=== PATIENT | male | born 1995 | race Caucasian/White ===

== ENCOUNTER 2018-06-21 18:14 | Emergency (ER) | payer OTHER, BC ==
--- NOTE | 2018-06-21 18:41 | ER Document Report ---
ED Medical Screen (RME) - General Chief Complaint: Foot Pain Stated Complaint: FOOT INJURY Time Seen by Provider: 06/21/18 18:40 Mode of Arrival: Ambulatory Information source: Patient TRAVEL OUTSIDE OF THE [place] IN LAST 30 DAYS: No - HPI Patient complains to provider of: L foot pain Onset: Other - Pt with ulcers to L foot that haven't improved in the past few weeks. Now with surrounding erythema - Related Data Allergies/Adverse Reactions: No Known Allergies Allergy (Unverified 05/18/15 20:11) Past Medical History Past Surgical History: Reports: Hx Oral Surgery Physical Exam - Vital signs Vitals: Temp Pulse Resp BP Pulse Ox 98.6 F 59 L 20 144/75 H 99 06/21/18 18:26 06/21/18 18:26 06/21/18 18:26 06/21/18 18:26 06/21/18 18:26 Course - Vital Signs Vital signs: Temp Pulse Resp BP Pulse Ox 98.6 F 59 L 20 144/75 H 99 06/21/18 18:26 06/21/18 18:26 06/21/18 18:26 06/21/18 18:26 06/21/18 18:26 Doctor's Discharge - Discharge Referrals: RANJIT SHARMA PA-C [Primary Care Provider] - Follow up as needed
[2018-06-21 19:16] LABS: ABSOLUTE BASOPHILS # (AUTO) 0.1 10^3/uL (0.0-0.2); ABSOLUTE EOSINOPHILS # (AUTO) 0.2 10^3/uL (0.0-0.6); ABSOLUTE LYMPHOCYTES (AUTO) 3.5 10^3/uL (0.5-4.7); ABSOLUTE MONOCYTES (AUTO) 0.5 10^3/uL (0.1-1.4); BASOPHILS % (AUTO) 1.2 % (0-2); EOSINOPHILS % (AUTO) 2.7 % (0-6); HEMATOCRIT 42.4 % (37.9-51.0); HEMOGLOBIN 14.7 g/dL (13.5-17.0); LYMPHOCYTES % (AUTO) 37.5 % (13-45); MEAN CORPUSCULAR HEMOGLOBIN 29.2 pg (27.0-33.4); MEAN CORPUSCULAR HGB CONC 34.7 g/dL (32.0-36.0); MEAN CORPUSCULAR VOLUME 84 fl (80-97); RED BLOOD COUNT 5.05 10^6/uL (4.35-5.55); RED CELL DISTRIBUTION WIDTH 13.1 % (11.5-14.0); SEGMENTED NEUTROPHILS % (AUTO) 53.6 % (42-78); TOTAL CELLS COUNTED % (AUTO) 100 %; WHITE BLOOD COUNT 9.3 10^3/uL (4.0-10.5)
[2018-06-21 19:44] LABS: PLATELET COUNT 124 10^3/uL (150-450)
[2018-06-21 20:16] LABS: ALANINE AMINOTRANSFERASE 22 U/L (21-72); ALBUMIN 4.7 g/dL (3.5-5.0); ALKALINE PHOSPHATASE 80 U/L (38-126); ANION GAP 15 (5-19); ASPARTATE AMINO TRANSFERASE 20 U/L (17-59); BILIRUBIN,DIRECT 0.3 mg/dL (0.0-0.4); BILIRUBIN,TOTAL 0.5 mg/dL (0.2-1.3); BLOOD UREA NITROGEN 9 mg/dL (7-20); CALCIUM 9.8 mg/dL (8.4-10.2); CARBON DIOXIDE 27 mmol/L (22-30); CHLORIDE 102 mmol/L (98-107); GLUCOSE 84 mg/dL (75-110); POTASSIUM 3.8 mmol/L (3.6-5.0); SODIUM 143.7 mmol/L (137-145); TOTAL PROTEIN 7.3 g/dL (6.3-8.2)
--- NOTE | 2018-06-21 21:10 | RADIOLOGY REPORT (SQ) ---
EXAM DESCRIPTION: XR FOOT 1-2 VIEWS COMPLETED DATE/TME: 06/21/2018 18:40 CLINICAL HISTORY: 22 years, Male, ulcers -L foot Findings: Bony alignment is anatomic. No fracture or dislocation. Soft tissues are unremarkable. IMPRESSION: No fracture.
--- NOTE | 2018-06-21 21:11 | ER Document Report ---
ED Extremity Problem, Lower - General Chief Complaint: Foot Pain Stated Complaint: FOOT INJURY Time Seen by Provider: 06/21/18 18:40 Mode of Arrival: Ambulatory Information source: Patient Notes: Patient developed sores to the left foot after walking in the [place] in his work boots. He states that the boots have never dried since he walked in the [place]. He states he is worn his boots each day to work since then. He states the sores on his foot has slowly progressed over the last 3 weeks. He states he does not remember any injuries to the foot. There is no inflammation to the area. There is some purple skin around the ulcers. There is no warmth to the area there is no fevers or chills. Patient is alert and oriented respirations regular and unlabored speaking in full sentences walking with a even steady gait. TRAVEL OUTSIDE OF THE [place] IN LAST 30 DAYS: No - HPI Patient complains to provider of: Pain, Other - Ulcers to the top of the left foot slowly developed over the last month Location: Foot - Left foot Occurred: Other - Early over the last month Onset/Duration: Gradual Quality of pain: Achy, Pressure Severity: Moderate Pain Level: 2 Context: Other - Appears to be ulcers from wearing wet boots Recent injury: No Associated symptoms: Painful ambulation Exacerbated by: Movement, Walking Relieved by: Nothing - Related Data Allergies/Adverse Reactions: No Known Allergies Allergy (Unverified 05/18/15 20:11) Past Medical History - General Information source: Patient - Social History Smoking Status: Never Smoker Chew tobacco use (# tins/day): Yes - 4 cans a day Smoking Education Provided: Yes - 4 minutes Frequency of alcohol use: None Drug Abuse: None Lives with: Family Family History: Reviewed & Not Pertinent Patient has suicidal ideation: No Patient has homicidal ideation: No - Past Medical History Cardiac Medical History: Reports: None Pulmonary Medical History: Reports: None EENT Medical History: Reports: None Neurological Medical History: Reports: None Endocrine Medical History: Reports: None Renal/ Medical History: Reports: None Malignancy Medical History: Reports None GI Medical History: Reports: None Musculoskeletal Medical History: Reports None Skin Medical History: Reports None Psychiatric Medical History: Reports: None Traumatic Medical History: Reports: None Infectious Medical History: Reports: None Past Surgical History: Reports: Hx Oral Surgery Review of Systems - Review of Systems Notes: REVIEW OF SYSTEMS: CONSTITUTIONAL : Denies fever, chills, or sweats. Denies recent illness. EENT: Denies eye, ear, throat, or mouth pain or symptoms. Denies nasal or sinus congestion or discharge. Denies throat, tongue, or mouth swelling or difficulty swallowing. CARDIOVASCULAR: Denies chest pain. Denies palpitations or racing or irregular heart beat. Denies ankle edema. RESPIRATORY: Denies cough, cold, or chest congestion. Denies shortness of breath, difficulty breathing, or wheezing. GASTROINTESTINAL: Denies abdominal pain or distention. Denies nausea, vomiting , or diarrhea. Denies blood in vomitus, stools, or per rectum. Denies black, tarry stools. Denies constipation. GENITOURINARY: Denies difficulty urinating, painful urination, burning, frequency, blood in urine, or discharge. MUSCULOSKELETAL: Denies back or neck pain or stiffness. Denies joint pain or swelling. SKIN: Open sores to the top of the left foot x2 HEMATOLOGIC : Denies easy bruising or bleeding. LYMPHATIC: Denies swollen, enlarged glands. NEUROLOGICAL: Denies confusion or altered mental status. Denies passing out or loss of consciousness. Denies dizziness or lightheadedness. Denies headache. Denies weakness or paralysis or loss of use of either side. Denies problems with gait or speech. Denies sensory loss, numbness, or tingling. Denies seizures. PSYCHIATRIC: Denies anxiety or stress. Denies depression, suicidal ideation, or homicidal ideation. ALL OTHER SYSTEMS REVIEWED AND NEGATIVE. Dictation was performed using [employer] voice recognition software PHYSICAL EXAMINATION: GENERAL: Well-appearing, well-nourished and in no acute distress. HEAD: Atraumatic, normocephalic. EYES: Pupils equal round and reactive to light, extraocular movements intact, sclera anicteric, conjunctiva are normal. ENT: Nares patent, oropharynx clear without exudates. Moist mucous membranes. NECK: Normal range of motion, supple without lymphadenopathy LUNGS: Breath sounds clear to auscultation bilaterally and equal. No wheezes rales or rhonchi. HEART: Regular rate and rhythm without murmurs ABDOMEN: Soft, nontender, nondistended abdomen. No guarding, no rebound. No masses appreciated. Musculoskeletal: Normal range of motion, no pitting or edema. No cyanosis. NEUROLOGICAL: Cranial nerves grossly intact. Normal speech, normal gait. Normal sensory, motor exams PSYCH: Normal mood, normal affect. SKIN: Open ulcers to the top of the left foot x2 with purple area surrounding both ulcers. No erythema no swelling no drainage. Appears to be starting to heal. Patient states it is more itchy than painful. Physical Exam - Vital signs Vitals: Temp Pulse Resp BP Pulse Ox 98.6 F 59 L 20 144/75 H 99 06/21/18 18:26 06/21/18 18:26 06/21/18 18:26 06/21/18 18:26 06/21/18 18:26 Course - Re-evaluation Re-evalutation: 06/22/18 03:00 Patient given instructions on care of open ulcers. Patient to keep shoe off when not working her up and ambulating. Patient instructed to elevate the foot for the next couple days and to be sure that the boots are dry before putting them back on. Patient states he was walking around in wet boots with wet socks for about the last 3-4 weeks. Patient and family verbalized understanding and agreement with treatment plan. - Vital Signs Vital signs: Temp Pulse Resp BP Pulse Ox 97.9 F 57 L 20 140/55 H 99 06/21/18 21:24 06/21/18 21:24 06/21/18 18:26 06/21/18 21:24 06/21/18 21:24 - Laboratory Result Diagrams: 06/21/18 19:02 06/21/18 19:50 Laboratory results interpreted by me: 06/21/18 19:02 Plt Count 124 L - Diagnostic Test Radiology reviewed: Image reviewed, Reports reviewed Discharge - Discharge Clinical Impression: left foot sores Condition: Stable Disposition: HOME, SELF-CARE Additional Instructions: You were seen today for ulcers to your left foot after wearing wet boots for the last 3 weeks to a month. You need to ensure that your boots are fully dry before you wear them again. If you get your boots wet at work again you need to be sure that you fully dry them before wearing them again. Please wear a pad inside of your socks until your ulcer is healed as the work boots will irritate your foot. These clean your feet good with the soap I provided you rinse well and pat dry. Please be sure your socks are dry at all times. These follow-up with your primary doctor if these ulcers do not heal up after you have kept her feet dry. FOLLOW-UP CARE: If you have been referred to a physician for follow-up care, call the physician s office for an appointment as you were instructed or within the next two days. If you experience worsening or a significant change in your symptoms, notify the physician immediately or return to the Emergency Department at any time for re-evaluation. Forms: Elevated Blood Pressure, Return to Work Referrals: RANJIT SHARMA PA-C [PHYSICIAN BATTER OUT] - 06/23/18
[2018-06-21 21:25] VITALS: BP 140/55
== END 2018-06-21 21:25 | disposition home or self-care (01) ==
LOC: ER 18:14
DX: L97.529 Non-pressure chronic ulcer of other part of left foot with unspecified severity (principal); Z72.0 Tobacco use; Z71.6 Tobacco abuse counseling
CPT/HCPCS: 36415; 80053; 85025; 99284; 99406